=== PATIENT | female | born 1930 | race American Indian/Alaskan Native ===

== ENCOUNTER 2017-10-06 10:35 | Outpatient (CLI) | payer MEDICARE, OTHER ==
--- NOTE | 2017-10-06 16:23 | Cat Scan Report ---
FINAL REPORT EXAM: CT CHEST WO CON HISTORY: Solitary pulmonary nodule TECHNIQUE: CT examination of the chest without IV contrast PRIORS: None. FINDINGS: Slight cardiomegaly without pericardial effusion. Coronary artery calcification. Normal caliber thoracic aorta with moderate calcified plaque. Normal-appearing esophagus. No hilar mass or mediastinal adenopathy. Smoothly marginated hypodense right and left hepatic lobe lesions are nonspecific and statistically most likely reflect cysts and/or hemangiomas. Differential includes inflammation, infection, or neoplasm in the appropriate clinical setting. Subtle density in the dependent gallbladder lumen may be small gallstones. Nonspecific, smoothly marginated, simple appearing, low density bilateral renal lesions are statistically most likely cysts. No acute fracture or significant osseous lesion. Nonspecific bilateral calcified pleural plaques. No pneumothorax or pleural effusion. Nonspecific subpleural pneumatocele in the medial right upper lobe. Nonspecific linear and masslike consolidation in right lower lobe anteriorly and inferiorly. This may be scar, atelectasis, pneumonia, and/or neoplasm. Inferior aspect abuts the right diaphragm. Maximum thickness of linear component is 7 mm. Thickness of nodular component is 18 mm. Calcified granulomas in left lung base. Slight linear scar versus atelectasis in left lung base posteriorly. IMPRESSION: Linear and masslike consolidation in the right lower lobe anteriorly and inferiorly may be scar and/or atelectasis. Differential includes pneumonia and/or neoplasm in the appropriate clinical setting Calcified granulomas in left lung base Slight linear scar versus atelectasis in left lung base posteriorly Slight cardiomegaly with coronary artery calcification Liver lesions statistically most likely reflect cysts and/or hemangiomas. Differential includes inflammation, infection, or neoplasm in the appropriate clinical setting Subtle density suggestive of small faintly calcified gallstones in gallbladder lumen Renal lesions most compatible with cysts
== END 2017-10-06 10:36 | disposition home or self-care (01) ==
LOC: CT 10:35
PROVIDERS: ATTEND Specialist
DX: J84.10 Pulmonary fibrosis, unspecified (principal); I51.7 Cardiomegaly; J44.1 Chronic obstructive pulmonary disease with (acute) exacerbation; I25.10 Atherosclerotic heart disease of native coronary artery without angina pectoris; R91.1 Solitary pulmonary nodule
CPT/HCPCS: 71250

== ENCOUNTER 2017-10-26 13:43 | Outpatient (CLI) | payer MEDICARE, OTHER ==
--- NOTE | 2017-10-30 11:29 | PET Report ---
PET/CT:10/26/17 13:43:00 CLINICAL: Abnormal chest x-ray with right lower lobe mass or consolidation. RADIOPHARMACEUTICAL: 14.71mCi F18-FDG. COMPARISON: CT Chest 10/06/17 TECHNIQUE- Following intravenous injection of F-18 FDG and an approximately 60 minute uptake period, CT and PET images from the mid skull to the upper thighs were acquired with the patient in the fasted state. No contrast was administered. The CT protocol used for this PET CT study is designed for attenuation correction and anatomic localization of PET abnormalities. This special trackwork blacksmith CT is not desired to produce and cannot replace, [id number] diagnostic CT scans with specific imaging protocols for different body parts and indications. Plasma glucose at the time of this test: 146g/dl. The standardized uptake values (SUV) are normalized to patient body weight and indicate the highest activity concentration (SUV max) in a given disease site. FINDINGS: Brain--Physiologic FDG uptake in the visualized regions of the brain. Neck--Physiologic FDG uptake . Chest--Physiologic FDG uptake in mediastinal blood pool and myocardium. Lungs--No abnormal uptake. No pulmonary nodule or mass. Right lower lobe subsegmental atelectasis is less prominent than on the previous chest x-ray. Pleura/pericardium--No abnormal uptake. However, multiple lateral calcified pleural plaques. Thoracic nodes--No abnormal uptake. Hepatobiliary--No abnormal uptake. Liver background SUV mean, as a reference for comparing FDG studies, is 3.1 . Multiple small benign hepatic cysts. No liver mass. Spleen--No abnormal uptake. Pancreas--No abnormal uptake. Adrenal Glands--No abnormal uptake. Kidneys/Ureters/Bladder--No abnormal uptake. Several benign left renal cysts. The largest is in the upper pole and measures 6.8 cm. Abdominopelvic Nodes--No abnormal uptake. Bowel/Peritoneum/Mesentery--Focal FDG uptake in the sigmoid colon with SUV 14.9. The focal uptake is in a background of sigmoid diverticulosis. No signs of diverticulitis. Pelvic organs--No abnormal uptake. Bones/Soft Tissues--No abnormal uptake. IMPRESSION- 1. Extensive bilateral non-FDG avid calcified pleural plaques which suggest asbestos exposure. 2. Right lower lobe benign subsegmental atelectasis and no evidence of tumor in the right lower lobe. 3. Benign hepatic and renal cysts. 4. Sigmoid diverticulosis with focal FDG uptake in the sigmoid. The differential includes diverticulitis, benign intraluminal retained FDG and tumor of the sigmoid colon. Recommend further workup with either a barium study or colonoscopy.
== END 2017-10-26 13:44 | disposition home or self-care (01) ==
LOC: PET 13:43
PROVIDERS: ATTEND Specialist
DX: R91.1 Solitary pulmonary nodule (principal); R79.89 Other specified abnormal findings of blood chemistry; R94.31 Abnormal electrocardiogram [ECG] [EKG]
CPT/HCPCS: 78815; 82962; A9552